=== PATIENT | male | born 1985 | race Caucasian/White ===

== ENCOUNTER 2017-02-02 11:35 | Emergency (ER) | payer BC ==
[2017-02-02 11:38] VITALS: RESP 16
--- NOTE | 2017-02-02 12:27 | EDPHY ---
H & P Stated Complaint: for months fatigue & disorientation Time Seen by Provider: 02/02/17 12:11 HPI/ROS: Chief Complaint: Fatigue, chest discomfort HPI: 31-year-old male who is presenting complaining of episodes of shortness of breath, chest tightness and feeling like he is dying. Patient states that he has been having these episodes intermittently for the past 2 years, ever since living in an apartment in [place] that had black mold. He is concerned that he might have a chronic mold in infection. Patient states he is getting his episodes about once a week. It is often triggered when he staying in hotels. Has been having some depression associated with this which has been worsening. Has never been diagnosed with depression in the past. Patient states symptoms last for about 12 hours during which he is very fatigued and can 't get out of bed. No weight loss or weight gain. Some chills but no fever. Has total body aches intermittently. No nausea or vomiting or diarrhea. No intolerance to heat or cold. ROS: 10 point Review of Systems is negative except as noted in the HPI. PMH: None Medications: None Allergies: None Social History: No smoking, no alcohol, no recreational drug use Family History: Father had hypertension Physical Exam: Gen: Awake, Alert, No Distress HEENT: Nose: no rhinorrhea Eyes: PERRLA, EOMI Mouth: Moist mucosa Neck: Supple, no JVD Chest: nontender, lungs clear to auscultation Heart: S1, S2 normal, no murmur Abd: Soft, non-tender, no guarding Back: no CVA tenderness, no midline tenderness Ext: no edema, non-tender Skin: no rash Neuro: CN II-XII intact, Sensation grossly intact, Strength 5/5 in bilateral upper and lower extremities - Personal History Current Tetanus/Diphtheria Vaccine: Yes Current Tetanus Diphtheria and Acellular Pertussis (TDAP): Yes - Medical/Surgical History Hx Asthma: No Hx Chronic Respiratory Disease: No Hx Diabetes: No Hx Cardiac Disease: No Hx Renal Disease: No Hx Cirrhosis: No Hx Alcoholism: No Hx HIV/AIDS: No Hx Splenectomy or Spleen Trauma: No - Social History Smoking Status: Never smoked Constitutional: Initial Vital Signs Temperature (C) 36.9 C 02/02/17 11:37 Heart Rate 71 02/02/17 11:37 Respiratory Rate 16 02/02/17 11:37 Blood Pressure 121/80 H 02/02/17 11:37 O2 Sat (%) 97 02/02/17 11:37 O2 Delivery Mode Room Air Allergies/Adverse Reactions: No Known Allergies Allergy (Unverified 02/02/17 11:38) Medical Decision Making ED Course/Re-evaluation: Laboratory evaluations are negative. ECG is normal. Patient will be discharged with follow up with primary care physician. No evidence of acute cardiothoracic or metabolic process at this time. - Data Points Laboratory Results: Laboratory Results 02/02/17 12:31 02/02/17 12:31 02/02/17 02/02/17 12:31 12:31 WBC 7.03 10^3/uL 10^3/uL (3.80-9.50) RBC 5.39 10^6/uL 10^6/uL (4.40-6.38) Hgb 17.0 g/dL g/dL (13.7-17.5) Hct 49.2 % % (40.0-51.0) MCV 91.3 fL fL (81.5-99.8) MCH 31.5 pg pg (27.9-34.1) MCHC 34.6 g/dL g/dL (32.4-36.7) RDW 13.0 % % (11.5-15.2) Plt Count 228 10^3/uL 10^3/uL (150-400) MPV 10.8 fL fL (8.7-11.7) Neut % (Auto) 59.7 % % (39.3-74.2) Lymph % (Auto) 31.3 % % (15.0-45.0) [place] % (Auto) 6.4 % % (4.5-13.0) Eos % (Auto) 1.3 % % (0.6-7.6) Baso % (Auto) 0.6 % % (0.3-1.7) Nucleat RBC Rel Count 0.0 % % (0.0-0.2) Absolute Neuts (auto) 4.20 10^3/uL 10^3/uL (1.70-6.50) Absolute Lymphs (auto) 2.20 10^3/uL 10^3/uL (1.00-3.00) Absolute Monos (auto) 0.45 10^3/uL 10^3/uL (0.30-0.80) Absolute Eos (auto) 0.09 10^3/uL 10^3/uL (0.03-0.40) Absolute Basos (auto) 0.04 10^3/uL 10^3/uL (0.02-0.10) Absolute Nucleated RBC 0.00 10^3/uL 10^3/uL (0-0.01) Immature Gran % 0.7 % % (0.0-1.1) Immature Gran # 0.05 10^3/uL 10^3/uL (0.00-0.10) Sodium 143 mEq/L mEq/L (134-144) Potassium 4.6 mEq/L mEq/L (3.5-5.2) Chloride 111 mEq/L H mEq/L (97-110) Carbon Dioxide 17 mEq/l L mEq/l (22-31) Anion Gap 15 mEq/L mEq/L (8-16) BUN 17 mg/dL mg/dL (7-23) Creatinine 1.1 mg/dL mg/dL (0.7-1.3) Estimated GFR > 60 Glucose 81 mg/dL mg/dL (70-100) Calcium 9.9 mg/dL mg/dL (8.5-10.4) TSH 3.460 uIU/mL uIU/mL (0.465-4.680) Departure - Departure Disposition: Home, Routine, Self-Care Clinical Impression: Shortness of breath, Fatigue Condition: Good Instructions: Dyspnea (ED), Fatigue (ED) Additional Instructions: Follow up with primary care physician in 3-4 days for re-evaluation. Return emergency depart for increasing chest pain, shortness of breath, fevers, chills, nausea, vomiting, or any other concerns. Referrals: Brianna Garcia MD [Primary Care Provider] - As per Instructions
[2017-02-02 12:46] LABS: % IMMATURE GRANULYOCYTES 0.7 % (0.0-1.1); ABSOLUTE IMMATURE GRANULOCYTES 0.05 10^3/uL (0.00-0.10); ADD DIFF? NO; ADD MORPH? NO; ADD SCAN? NO; ATYPICAL LYMPHOCYTE FLAG 0 (0-99); FRAGMENT RBC FLAG 0 (0-99); HEMATOCRIT 49.2 % (40.0-51.0); LEFT SHIFT FLG 0 (0-99); LIPEMIA HEMOLYSIS FLAG 90 (0-99); MEAN CELL HEMOGLOBIN 31.5 pg (27.9-34.1); MEAN CELL HEMOGLOBIN CONCENTR. 34.6 g/dL (32.4-36.7); MEAN CELL VOLUME 91.3 fL (81.5-99.8); MEAN PLATELET VOLUME 10.8 fL (8.7-11.7); PLATELET CLUMPS FLAG 0 (0-99); PLATELET COUNT 228 10^3/uL (150-400); RED BLOOD CELL COUNT 5.39 10^6/uL (4.40-6.38)
[2017-02-02 12:53] LABS: ANION GAP 15 mEq/L (8-16); CALCIUM 9.9 mg/dL (8.5-10.4); CARBON DIOXIDE 17 mEq/l (22-31); CHLORIDE 111 mEq/L (97-110); CREATININE 1.1 mg/dL (0.7-1.3); GLOMERULAR FILTRATION RATE > 60; GLUCOSE 81 mg/dL (70-100); POTASSIUM 4.6 mEq/L (3.5-5.2); SODIUM 143 mEq/L (134-144)
--- NOTE | 2017-02-02 13:19 | CPEKG ---
Heart Rate: 57 RR Interval: 1053 P-R Interval: 212 QRSD Interval: 90 QT Interval: 412 QTC Interval: 401 P [place]: 2 QRS [place]: 75 T Wave [place]: 55 EKG Severity - ABNORMAL ECG - EKG Impression: SINUS RHYTHM EKG Impression: FIRST DEGREE AV BLOCK Electronically Signed By: Thiago Gavin 03-Feb-2017 14:19:13
[2017-02-02 14:17] VITALS: BP 118/76; PULSE 68; TEMP 97.7; O2SAT 98
== END 2017-02-02 14:26 | disposition home or self-care (01) ==
DX: R06.02 Shortness of breath (principal); R53.83 Other fatigue